=== PATIENT | female | born 1940 ===

== ENCOUNTER → 2022-11-23 15:57 | Outpatient (CLI) | payer MEDICARE, SELFPAY ==
--- NOTE | ~2022-11-23 | MR_ITS ---
MRI of the lumbar spine Clinical History: Spondylosis Technique: Axial T2-weighted images, and sagittal T1-weighted, T2-weighted, and T2 fat-sat images wer e acquired. Findings: There is mild scoliosis. There is minimal grade 1 retrolisthesis of L1 over L2, and L2 over L3. There is minimal grade 1 retrolisthesis of L4 over L5. No suspicious bone marrow signal abnormal ity seen. There is severe degenerative disc narrowing at all lumbar levels. At L1-L2, there is minimal disc bulge and moderate facet arthropathy. No central canal stenosis. Ther e is moderate to severe left neural foraminal narrowing. Right neural foramen preserved. At L2-L3, there is mild disc bulge and moderate facet arthropathy. There is mild central canal stenos is. There is moderate bilateral neural foraminal narrowing. At L3-L4, disc bulge and severe facet arthropathy are present. There is severe central canal stenosis /thecal sac compression and severe right lateral recess stenosis. There is severe bilateral neural fo raminal compromise, right worse than left. At L4-L5, disc bulge and severe facet arthropathy are present. There is severe right neural foraminal narrowing. There is minimal left neural foraminal narrowing. No andie central canal stenosis. At L5-S1, there is disc bulge and severe facet arthropathy. No central canal stenosis. There is sever e bilateral neural foraminal narrowing, right worse than left. Paravertebral soft tissues are unremarkable. Impression: Severe degenerative spondylosis, as detailed above, with multiple grade 1 retrolistheses, as detailed above. Reviewed, dictated and finalized at [facility]. Impression: Severe degenerative spondylosis, as detailed above, with multiple grade 1 retro listheses, as detailed above.
== END ==
PROVIDERS: PCP Nurse Practitioner Family; Visit Provider Nurse Practitioner Family
DX: M54.16 Radiculopathy, lumbar region (principal); M43.06 Spondylolysis, lumbar region; M47.816 Spondylosis without myelopathy or radiculopathy, lumbar region
CPT/HCPCS: 72148

== ENCOUNTER 2023-11-23 15:44 | Outpatient (CLI) | payer MEDICARE, SELFPAY ==
--- NOTE | ~2023-11-23 | US_ITS ---
Right upper quadrant ABDOMINAL ULTRASOUND Ordering provider: Elle Mcnamara MD History: . ELEVATED LIVER ENZYMES . Comparison: None. FINDINGS: LIVER: Normal size and echotexture. No focal hepatic lesions or perihepatic fluid collections are nas ntified. Portal vein flow is normal. GALLBLADDER: Unremarkable. No evidence for stones, sludge, gallbladder wall thickening or pericholecy stic fluid collections. The wall measures 4 mm. A negative sonographic Hopkins's sign was noted. BILIARY DUCTS: No evidence for intra or extrahepatic biliary dilation. Common bile duct measures 8 mm in diameter which is within normal limits. PANCREAS: Partially seen. Normal echotexture and size. UPPER ABDOMINAL AORTA: Normal in caliber. IVC: Patent. FREE FLUID: None. IMPRESSION: Unremarkable ultrasound of the right upper quadrant of the abdomen. Reviewed, dictated and finalized at location [facility].
== END 2023-11-23 15:45 | disposition home or self-care (01) ==
LOC: GOSHIMG 15:44
PROVIDERS: PCP Nurse Practitioner Family; Visit Provider Internal Medicine
DX: R74.8 Abnormal levels of other serum enzymes (principal)
CPT/HCPCS: 76705